=== PATIENT | male | born 1965 | race Caucasian/White ===

== ENCOUNTER 2022-08-31 12:15 | Inpatient (IN) | payer MEDICAID ==
[2022-08-31] VITALS (7 sets, daily range): BP systolic 108–182
[~2022-08-31] VITALS: Ht 177.8 cm; Wt 112.9 kg
[2022-08-31] MEDS ORDERED: NACL 0.9% 1,000 ML IV ONE ×2 (13:00→14:15)
[2022-08-31] MEDS ORDERED: ONDANSETRON HCL 4 MG/2 ML VIAL IVP ONE ×2 (13:00→14:45)
[2022-08-31] MEDS ORDERED: MORPHINE 4 MG INJ. 4 MG/ML VIAL IVP ONE (13:00)
[2022-08-31 13:13] LABS: HEMATOCRIT 50.8 % (36-54); HEMOGLOBIN 17.9 g/dL (14.0-18.0); MEAN CORPUSCULAR HEMOGLOBIN 31 pg (27-31); MEAN CORPUSCULAR HGB CONC 35 % (32-36); MEAN CORPUSCULAR VOLUME 89 fL (79.0-98.0); PLATELET COUNT (AUTO) 179 K/uL (130-430); RED BLOOD CELL COUNT(AUTO) 5.69 MIL/uL (4.2-6.2); RED CELL DISTRIBUTION WIDTH 12.5 % (9.0-15.0)
[2022-08-31 13:22] LABS: ALANINE AMINOTRANSFERASE 23 U/L (12-78); ALBUMIN 3.4 g/dL (3.4-4.8); ANION GAP 22 (5-15); ASPARTATE AMINOTRANSFERASE 22 U/L (10-37); CALCIUM 8.6 mg/dL (8.4-11.0); CHLORIDE 91 mmol/L (98-107); CREATININE 1.36 mg/dL (0.55-1.30); GFR AFRICAN AMERICAN 70 mL/min (>90); TOTAL BILIRUBIN 2.1 mg/dL (0.0-1.0); UREA NITROGEN, BLOOD 16 mg/dL (8-21)
[2022-08-31 13:30] LABS: LIPASE 28 U/L (73-393)
[2022-08-31 13:41] LABS: GLUCOSE 438 mg/dL (70-99)
[2022-08-31 13:50] LABS: BILIRUBIN,URINE NEGATIVE (NEGATIVE); BLOOD, URINE 1+ (NEGATIVE); COLOR,URINE YELLOW (YELLOW); GLUCOSE,URINE 3+ (NEGATIVE); KETONES,URINE 3+ (NEGATIVE); LEUKOCYTE ESTERASE ,URINE NEGATIVE (NEGATIVE); NITRITE, URINE NEGATIVE (NEGATIVE); PH,URINE 5.5 (5.0-8.0); PROTEIN URINE NEGATIVE (NEGATIVE); UROBILINOGEN,URINE 0.2 (0.2-1.0)
[2022-08-31 13:53] LABS: CLARITY/URINE SLIGHTLY HAZY (CLEAR)
[2022-08-31 13:59] LABS: BACTERIA,URINE RARE /HPF (None Seen); RBC,URINE 0-3 /HPF (0-3); WBC,URINE 0-3 /HPF (0-3)
[2022-08-31 14:04] LABS: ATYPICAL LYMPHOCYTES % 0 % (0-0); BAND % (MANUAL) 10 % (0-6); BASOPHILS % (MANUAL) 0 % (0-2); EOSINOPHILS % (MANUAL) 0 % (0-7); LYMPHOCYTES % (MANUAL) 3 % (20-46); MONOCYTES % (MANUAL) 7 % (0-11)
[2022-08-31] MEDS ORDERED: PIPERACILLIN/TAZO 3.375 GM in NS 50 ML IV ONE (14:15)
[2022-08-31] MEDS ORDERED: KETOROLAC TROMETHAMINE 30 MG VIAL IVP ONE (14:30)
[2022-08-31] MEDS ORDERED: PIPERACILLIN/TAZOBACTAM 3.375 GM/VIAL (ZOSYN) IV ONE (14:43)
[2022-08-31] MEDS ORDERED: METOPROLOL TARTRATE 5 MG/5 ML VIAL IVP ONE (14:45)
[2022-08-31] MEDS ORDERED: SODIUM BICARBONATE 8.4% JECT 50 MEQ/50 ML SYRINGE IVP ONE (15:00)
[2022-08-31] MEDS ORDERED: INSULIN REGULAR, HUMAN 10 UNITS/0.1 ML, 3 ML VIAL IVP ONE (15:00)
[2022-08-31] MEDS ORDERED: INSULIN REGULAR, HUMAN 100 UNITS in NS 99 ML IV PRN ×2 (19:15)
[2022-08-31] MEDS ORDERED: DEXTROSE 50% JECT 50 ML DISP.SYRIN IVP PRN (19:15)
[2022-08-31 19:34] LABS: CALCIUM 8.6 mg/dL (8.4-11.0); CREATININE 1.47 mg/dL (0.55-1.30)
[2022-08-31] MEDS: PIPERACILLIN/TAZO 3.375/DEX-IS 50 ML IV SCH (19:35)
[2022-08-31] MEDS: NACL 0.9% 1,000 ML IV SCH (19:35)
[2022-08-31] MEDS ORDERED: KETOROLAC TROMETHAMINE 15 MG VIAL ONE (20:03)
[2022-08-31] MEDS: KETOROLAC TROMETHAMINE 15 MG VIAL IM PRN (20:50)
[2022-09-01] VITALS (20 sets, daily range): BP systolic 97–178
[2022-09-01] MEDS: PIPERACILLIN/TAZO 3.375/DEX-IS 50 ML IV SCH ×5 (00:18→23:55)
[2022-09-01] MEDS ORDERED: METOPROLOL TARTRATE 5 MG/5 ML VIAL ONE (00:44)
[2022-09-01] MEDS ORDERED: METOPROLOL TARTRATE 5 MG/5 ML VIAL IVP PRN (00:45)
[2022-09-01] MEDS: MORPHINE 2 MG/ML INJ. SYRINGE IVP PRN ×3 (01:33→19:30)
[2022-09-01] MEDS: NACL 0.9% 1,000 ML IV SCH ×3 (01:35→23:48)
[2022-09-01] MEDS: KETOROLAC TROMETHAMINE 15 MG VIAL IM PRN ×3 (02:59→18:28)
[2022-09-01 05:40] LABS: HEMATOCRIT 44.7 % (36-54); HEMOGLOBIN 15.7 g/dL (14.0-18.0); MEAN CORPUSCULAR HEMOGLOBIN 31 pg (27-31); MEAN CORPUSCULAR HGB CONC 35 % (32-36); MEAN CORPUSCULAR VOLUME 88 fL (79.0-98.0); PLATELET COUNT (AUTO) 132 K/uL (130-430); RED BLOOD CELL COUNT(AUTO) 5.09 MIL/uL (4.2-6.2); RED CELL DISTRIBUTION WIDTH 12.6 % (9.0-15.0); WHITE BLOOD COUNT (AUTO) 16.4 K/uL (4.8-10.8)
[2022-09-01 06:57] LABS: BAND % (MANUAL) 3 % (0-6); BASOPHILS % (MANUAL) 0 % (0-2); EOSINOPHILS % (MANUAL) 0 % (0-7); LYMPHOCYTES % (MANUAL) 6 % (20-46); MONOCYTES % (MANUAL) 5 % (0-11)
[2022-09-01 08:08] LABS: CALCIUM 7.8 mg/dL (8.4-11.0); CREATININE 1.35 mg/dL (0.55-1.30); PHOSPHORUS 2.8 mg/dL (2.7-4.5)
[2022-09-01] MEDS: METOPROLOL TARTRATE 25 MG TABLET PO SCH ×2 (09:29→22:14)
[2022-09-01] MEDS: INSULIN NPH 100 UNITS/ML 10 ML VIAL SUBCUT SCH ×2 (09:33→23:47)
[2022-09-01] MEDS ORDERED: NS 500 ML IV ONE (12:15)
[2022-09-02] VITALS: BP_SYST 110
[2022-09-02] MEDS: KETOROLAC TROMETHAMINE 15 MG VIAL IM PRN ×2 (00:30→08:53)
[2022-09-02 04:00] VITALS: BP_SYST 113
[2022-09-02] MEDS: PIPERACILLIN/TAZO 3.375/DEX-IS 50 ML IV SCH ×4 (06:37→23:35)
[2022-09-02 06:53] LABS: BASOPHILS % (AUTO) 0.2 % (0.0-2.0); EOSINOPHILS % (AUTO) 0.5 % (0.0-4.0); HEMATOCRIT 43.2 % (36-54); HEMOGLOBIN 15.3 g/dL (14.0-18.0); LYMPHOCYTES # (AUTO) 0.6 K/uL (1.0-5.5); LYMPHOCYTES % (AUTO) 6.2 % (20.5-51.5); MEAN CORPUSCULAR HEMOGLOBIN 31 pg (27-31); MEAN CORPUSCULAR HGB CONC 36 % (32-36); MEAN CORPUSCULAR VOLUME 88 fL (79.0-98.0); MONOCYTES # (AUTO) 0.9 K/uL (0.0-1.0); MONOCYTES % (AUTO) 9.2 % (1.7-9.3); NEUTROPHILS # (AUTO) 8.4 K/uL (1.8-7.7); NEUTROPHILS % (AUTO) 83.9 % (40.0-70.0); PLATELET COUNT (AUTO) 112 K/uL (130-430); RED CELL DISTRIBUTION WIDTH 12.2 % (9.0-15.0); WHITE BLOOD COUNT (AUTO) 10.1 K/uL (4.8-10.8)
[2022-09-02 07:46] LABS: ALBUMIN 2.1 g/dL (3.4-4.8); CALCIUM 7.9 mg/dL (8.4-11.0); CREATININE 1.33 mg/dL (0.55-1.30); TOTAL BILIRUBIN 1.1 mg/dL (0.0-1.0)
[2022-09-02 07:47] LABS: PHOSPHORUS 2.4 mg/dL (2.7-4.5)
[2022-09-02 08:00] VITALS: BP_SYST 150; BP_SYST 157
[2022-09-02] MEDS: NACL 0.9% 1,000 ML IV SCH ×3 (08:49→23:35)
[2022-09-02] MEDS: METOPROLOL TARTRATE 25 MG TABLET PO SCH ×2 (08:50→21:00)
[2022-09-02] MEDS: INSULIN NPH 100 UNITS/ML 10 ML VIAL SUBCUT SCH (08:59)
[2022-09-02 09:19] LABS: ERYTHROCYTE SEDIMENTATION RATE 16 MM/HR (0-15)
[2022-09-02 10:16] LABS: C-REACTIVE PROTEIN QUANT 29.4 mg/dL (0-0.5)
[2022-09-02] MEDS ORDERED: NA PHOS 15 MM in NS 250 ML IV ONE (10:30)
[2022-09-02 12:00] VITALS: BP_SYST 150
[2022-09-02] MEDS: MORPHINE 2 MG/ML INJ. SYRINGE IVP PRN ×2 (12:23→18:23)
[2022-09-02] MEDS: INSULIN LISPRO SLIDING SCALE 100 UNITS/ML, 3 ML VIAL (humaLOG) SUBCUT PRN ×3 (12:26→22:58)
[2022-09-02] MEDS ORDERED: lisinopriL 5 MG TABLET PO ONE (13:45)
[2022-09-02 16:00] VITALS: BP_SYST 160
[2022-09-02] MEDS: INSULIN GLARGINE 100 UNITS/ML, 10 ML VIAL SUBCUT SCH (21:00)
[2022-09-03 01:16] VITALS: BP_SYST 148
[2022-09-03 01:19] VITALS: BP_SYST 152
[2022-09-03] MEDS: MORPHINE 2 MG/ML INJ. SYRINGE IVP PRN ×2 (02:30→12:51)
[2022-09-03 04:23] VITALS: BP_SYST 149
[2022-09-03] MEDS: PIPERACILLIN/TAZO 3.375/DEX-IS 50 ML IV SCH ×3 (05:35→18:01)
[2022-09-03] MEDS: INSULIN LISPRO SLIDING SCALE 100 UNITS/ML, 3 ML VIAL (humaLOG) SUBCUT PRN ×5 (06:02→22:14)
[2022-09-03] MEDS: KETOROLAC TROMETHAMINE 15 MG VIAL IM PRN ×2 (06:06→15:51)
[2022-09-03] MEDS: INSULIN Lispro 100 UNITS/ML, 3 ML VIAL (humaLOG) SUBCUT SCH ×3 (06:08→18:28)
[2022-09-03 06:20] LABS: BASOPHILS % (AUTO) 0.1 % (0.0-2.0); EOSINOPHILS % (AUTO) 0.4 % (0.0-4.0); HEMATOCRIT 43.6 % (36-54); HEMOGLOBIN 15.3 g/dL (14.0-18.0); LYMPHOCYTES # (AUTO) 0.9 K/uL (1.0-5.5); LYMPHOCYTES % (AUTO) 9.2 % (20.5-51.5); MEAN CORPUSCULAR HEMOGLOBIN 31 pg (27-31); MEAN CORPUSCULAR HGB CONC 35 % (32-36); MEAN CORPUSCULAR VOLUME 88 fL (79.0-98.0); MONOCYTES # (AUTO) 1.2 K/uL (0.0-1.0); MONOCYTES % (AUTO) 12.4 % (1.7-9.3); NEUTROPHILS # (AUTO) 7.3 K/uL (1.8-7.7); NEUTROPHILS % (AUTO) 77.9 % (40.0-70.0); PLATELET COUNT (AUTO) 129 K/uL (130-430); RED BLOOD CELL COUNT(AUTO) 4.98 MIL/uL (4.2-6.2); RED CELL DISTRIBUTION WIDTH 12.4 % (9.0-15.0); WHITE BLOOD COUNT (AUTO) 9.3 K/uL (4.8-10.8)
[2022-09-03 07:02] LABS: C-REACTIVE PROTEIN QUANT 21.8 mg/dL (0-0.5); CREATININE 1.29 mg/dL (0.55-1.30); PHOSPHORUS 2.7 mg/dL (2.7-4.5)
[2022-09-03 08:00] VITALS: BP_SYST 140
[2022-09-03] MEDS: lisinopriL 5 MG TABLET PO SCH (09:00)
[2022-09-03] MEDS: METOPROLOL TARTRATE 25 MG TABLET PO SCH ×2 (09:00→22:07)
[2022-09-03 09:14] LABS: ERYTHROCYTE SEDIMENTATION RATE 16 MM/HR (0-15)
[2022-09-03 12:00] VITALS: BP_SYST 151
[2022-09-03 16:00] VITALS: BP_SYST 150
[2022-09-03] MEDS: CALCIUM CARBONATE 500 MG/ TAB.CHEW PO PRN ×2 (18:07→22:09)
[2022-09-03] MEDS: INSULIN GLARGINE 100 UNITS/ML, 10 ML VIAL SUBCUT SCH (22:11)
[2022-09-04] MEDS: CALCIUM CARBONATE 500 MG/ TAB.CHEW PO PRN ×2 (00:54→04:45)
[2022-09-04] MEDS: MORPHINE 2 MG/ML INJ. SYRINGE IVP PRN ×2 (02:21→09:15)
[2022-09-04 02:52] VITALS: BP_SYST 147
[2022-09-04 02:57] VITALS: BP_SYST 147
[2022-09-04] MEDS: KETOROLAC TROMETHAMINE 15 MG VIAL IM PRN ×4 (05:45→16:12)
[2022-09-04] MEDS: PIPERACILLIN/TAZO 3.375/DEX-IS 50 ML IV SCH ×5 (06:00→18:00)
[2022-09-04] MEDS: INSULIN GLARGINE 100 UNITS/ML, 10 ML VIAL SUBCUT SCH (06:18)
[2022-09-04] MEDS: INSULIN LISPRO SLIDING SCALE 100 UNITS/ML, 3 ML VIAL (humaLOG) SUBCUT PRN ×3 (06:24→12:24)
[2022-09-04 06:34] LABS: BASOPHILS % (AUTO) 0.2 % (0.0-2.0); EOSINOPHILS % (AUTO) 0.2 % (0.0-4.0); HEMATOCRIT 41.3 % (36-54); HEMOGLOBIN 14.7 g/dL (14.0-18.0); LYMPHOCYTES # (AUTO) 0.8 K/uL (1.0-5.5); LYMPHOCYTES % (AUTO) 7.1 % (20.5-51.5); MEAN CORPUSCULAR HEMOGLOBIN 31 pg (27-31); MEAN CORPUSCULAR HGB CONC 36 % (32-36); MEAN CORPUSCULAR VOLUME 87 fL (79.0-98.0); MONOCYTES # (AUTO) 1.2 K/uL (0.0-1.0); MONOCYTES % (AUTO) 11.1 % (1.7-9.3); NEUTROPHILS # (AUTO) 8.8 K/uL (1.8-7.7); NEUTROPHILS % (AUTO) 81.4 % (40.0-70.0); PLATELET COUNT (AUTO) 138 K/uL (130-430); RED BLOOD CELL COUNT(AUTO) 4.75 MIL/uL (4.2-6.2); RED CELL DISTRIBUTION WIDTH 12.1 % (9.0-15.0); WHITE BLOOD COUNT (AUTO) 10.8 K/uL (4.8-10.8)
[2022-09-04 06:44] LABS: C-REACTIVE PROTEIN QUANT 11.8 mg/dL (0-0.5); CREATININE 1.05 mg/dL (0.55-1.30)
[2022-09-04 07:55] LABS: ERYTHROCYTE SEDIMENTATION RATE 17 MM/HR (0-15)
[2022-09-04 08:00] VITALS: BP_SYST 150
[2022-09-04] MEDS: INSULIN Lispro 100 UNITS/ML, 3 ML VIAL (humaLOG) SUBCUT SCH ×3 (09:10→19:46)
[2022-09-04] MEDS: lisinopriL 5 MG TABLET PO SCH (09:18)
[2022-09-04] MEDS: METOPROLOL TARTRATE 25 MG TABLET PO SCH (09:19)
[2022-09-04 11:46] VITALS: BP_SYST 133
[2022-09-04] MEDS ORDERED: LEVO-62 PO (15:08)
[2022-09-04] MEDS ORDERED: METO25TA6 PO (15:08)
[2022-09-04] MEDS ORDERED: INSU100V SUBCUT (15:08)
[2022-09-04] MEDS ORDERED: LISI-209 PO (15:08)
[2022-09-04] MEDS ORDERED: INSU100V9 SUBCUT (15:08)
[2022-09-04 18:28] VITALS: BP_SYST 132
== END 2022-09-04 21:27 | disposition home or self-care (01) | DRG 720 ==
LOC: SED 12:15 → SIC 15:53 → SMU 09-02 19:39
PROVIDERS: ADMIT Preventive Medicine Preventive Medicine/Occupational Environmental Medicine; ATTEND Preventive Medicine Preventive Medicine/Occupational Environmental Medicine
DX: A40.9 Streptococcal sepsis, unspecified (principal); J96.01 Acute respiratory failure with hypoxia; N17.0 Acute kidney failure with tubular necrosis; E11.10 Type 2 diabetes mellitus with ketoacidosis without coma; E43 Unspecified severe protein-calorie malnutrition; D69.6 Thrombocytopenia, unspecified; E83.41 Hypermagnesemia; E11.22 Type 2 diabetes mellitus with diabetic chronic kidney disease; E87.1 Hypo-osmolality and hyponatremia; E88.09 Other disorders of plasma-protein metabolism, not elsewhere classified; E83.52 Hypercalcemia; R65.20 Severe sepsis without septic shock; E66.9 Obesity, unspecified; Z20.822 Contact with and (suspected) exposure to COVID-19; E87.6 Hypokalemia; K21.9 Gastro-esophageal reflux disease without esophagitis; I12.9 Hypertensive chronic kidney disease with stage 1 through stage 4 chronic kidney disease, or unspecified chronic kidney disease; N18.9 Chronic kidney disease, unspecified; N13.6 Pyonephrosis; N28.1 Cyst of kidney, acquired; Z79.4 Long term (current) use of insulin; Z83.3 Family history of diabetes mellitus; Z86.16 Personal history of COVID-19; Z68.35 Body mass index [BMI] 35.0-35.9, adult; Z91.199 Patient's noncompliance with other medical treatment and regimen due to unspecified reason
CPT/HCPCS: 36415; 36600; 71045; 76376; 76770; 80048; 80053; 81000; 82009; 82803-TC; 82962; 83605; 83690; 83735; 83880; 84100; 84484; 85007; 85025; 85027; 85651-TC; 86140; 87040; 87081; 87086; 87186-TC; 93005; 93306; 96361; 96365; 96375; 99285; J1815; J1885; J2270; J2405; J2543; J3490; J7050; Q9967